=== PATIENT | female | born 1950 | race Caucasian/White ===

== ENCOUNTER 2017-11-21 16:00 | Emergency (ER) | payer MEDICARE, MEDICAID ==
[~2017-11-21] VITALS: Ht 152.4 cm; Wt 80.0 kg
[2017-11-21] MEDS ORDERED: D ME PO (16:10)
[2017-11-21] MEDS ORDERED: FORMULA PO (16:10)
[2017-11-21] MEDS ORDERED: IBUPROFEN 800 MG TABLET PO ONE (17:45)
[2017-11-21 18:15] LABS: RAPID GROUP A STREP NEGATIVE (NEGATIVE)
[2017-11-21 18:31] LABS: INFLUENZA TYPE A POSITIVE FOR TYPE A (NEGATIVE); INFLUENZA TYPE B NEGATIVE FOR TYPE B (NEGATIVE)
[2017-11-21] MEDS ORDERED: LEVOFLOXACIN 750 MG/D5% WATER 150 ML IV ONE (19:00)
[2017-11-21] MEDS ORDERED: OSELTAMIVIR PHOSPHATE 75 MG CAPSULE PO ONE (19:00)
[2017-11-21 20:48] VITALS: BP 121/58
== END 2017-11-21 20:55 | disposition home or self-care (01) ==
LOC: EMS 16:04
DX: J18.9 Pneumonia, unspecified organism (principal); J11.1 Influenza due to unidentified influenza virus with other respiratory manifestations
CPT/HCPCS: 71046; 87430; 87804; 96365; 96366; 99285; J1956

== ENCOUNTER 2017-11-25 17:25 | Emergency (ER) | payer MEDICARE, MEDICAID ==
[~2017-11-25] VITALS: Ht 154.9 cm; Wt 80.0 kg
[~2017-11-25 17:25] MED LIST: D ME PO; FORMULA PO
[2017-11-25] MEDS ORDERED: LEVO500 PO (17:43)
[2017-11-25] MEDS ORDERED: IPRATROPIUM BROMIDE 0.5 MG/2.5 ML NEB SOLUTION NEB ONE (18:15)
[2017-11-25] MEDS ORDERED: 0.9% SODIUM CHLORIDE 5 ML NEB SOLUTION NEB ONE (18:49)
[2017-11-25] MEDS ORDERED: ALBUTEROL SULFATE 2.5 MG/0.5 ML NEB SOLUTION NEB ONE (18:49)
[2017-11-25] MEDS ORDERED: ALBUTEROL SULFATE HFA 90 MCG/PUFF 8 GM INHALER IH ONE (19:15)
[2017-11-25 19:45] VITALS: BP 133/69
== END 2017-11-25 19:52 | disposition home or self-care (01) ==
LOC: EMS 17:27
DX: J18.9 Pneumonia, unspecified organism (principal); J11.1 Influenza due to unidentified influenza virus with other respiratory manifestations
CPT/HCPCS: 71046; 94640; 99284; J3535